=== PATIENT | female | born 1940 | race Caucasian/White ===

== ENCOUNTER → 2016-08-13 | Outpatient (CLI) | payer MEDICARE, OTHER ==
[~2016-08-13] MED LIST: ALEVE220 MG PO; ASPIR 8181 MG PO; COLACE100 MG PO; DILAUDID2 MG PO; NORCO 5-325 MG1 TAB PO; OSCAL500 MG PO; OXYGEN INH; PRESERVISION A1 EAC2 PO; SYNTHROID125 MCG PO; TYLENOL325 MG PO; ULTRAM50 MG PO; VALIUM2 M1 PO; VITAMIN D1000 UNI1 PO; VITAMIN D31000 UNI1 PO; XARELTO10 MG PO
== END | disposition disaster alternative care site (69) ==
LOC: GBCOE 07:44
DX: Z12.31 Encounter for screening mammogram for malignant neoplasm of breast (principal)
CPT/HCPCS: G0202

== ENCOUNTER → 2016-08-16 | Outpatient (CLI) | payer MEDICARE, OTHER | END | disposition disaster alternative care site (69) | LOC: GBCOE 15:22 | DX: R92.8 Other abnormal and inconclusive findings on diagnostic imaging of breast (principal) | CPT/HCPCS: G0206; G0279 ==